=== PATIENT | male | born 2000 | race African-American/Black ===

== ENCOUNTER 2020-10-03 03:41 | Emergency (ER) | payer MEDICAID, SELFPAY ==
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
[2020-10-03 03:50] VITALS: BP 127/85; PULSE 97; RESP 18; O2SAT 97; BMI 20.4
[2020-10-03 03:54] LABS: MANUAL DIFF FLAG NO
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
[2020-10-03 03:56] LABS: Basophils Absolute Auto 0.1 X10*3/uL (0.0-0.2); Basophils Percent Auto 0.6 % (0-2); Eosinophils Absolute Auto 0.3 X10*3/uL (0.0-0.4); Eosinophils Percent Auto 3.9 % (0-4); Hematocrit 39.7 % (42-52); Hemoglobin 14.3 g/dl (14.0-18.0); Imm Gran Abs Auto 0.03 X10*3/uL (0.00-0.03); Imm Gran Pct Auto 0.4 % (0.0-0.4); Lymphocytes Absolute Auto 2.6 X10*3/uL (1.2-4.9); Lymphocytes Percent Auto 33.5 % (20-40); Mean Corpuscular Hemoglobin 31.5 pg (27.0-33.0); Mean Corpuscular Volume 87.4 fL (80-98); Mean Platelet Volume 10.2 fL (9.4-12.4); Monocytes Absolute Auto 0.7 X10*3/uL (0.1-1.2); Neutrophils Absolute Auto 4.2 X10*3/uL (2.0-8.3); Neutrophils Percent Auto 52.6 % (45-73); Platelet Count 200 X10*3/uL (160-400); Red Blood Count 4.54 X10*6/uL (4.60-5.80); White Blood Count 7.9 X10*3/uL (4.8-10.8)
[2020-10-03] MEDS: 0.9 % Sodium Chloride 1,000 ML 999 ML IVCONT ×4 (03:59→04:35)
[2020-10-03] MEDS: ondansetron HCL 4 MG/2 ML VIAL IVPUSH (04:00)
[2020-10-03 04:09] VITALS: BP 111/69; PULSE 66; RESP 18; TEMP 37; O2SAT 97
[2020-10-03 04:15] LABS: COVID-19 Test Negative (Negative); IDNOW Serial# 9DD0AD1C
[2020-10-03 04:18] LABS: Anion Gap 17 (12-20); Blood Urea Nitrogen 13 mg/dL (9-16); Calcium 9.6 mg/dL (8.4-10.2); Carbon Dioxide 20 mmol/L (22-29); Chloride 110 mmol/L (96-108); Estimated Glomerular Filt Rate > 60; Glucose Random 84 mg/dL (60-115); Potassium 3.7 mmol/L (3.3-5.1); Sodium 143 mmol/L (135-145)
--- NOTE | 2020-10-03 04:26 | PC.NURSE ---
CALL TO [facility]
--- NOTE | 2020-10-03 04:31 | PC.NURSE ---
REPORT GIVEN TO AGA JEREZ AT [facility] TRAUMA TEAM.
--- NOTE | 2020-10-03 04:34 | PC.NURSE ---
Called [facility] transfer line per at [phone],awaiting for call back. Called a second time to [facility] transfer line at [phone] still awaiting for a call back. Received a call back at [phone] patient is being transferred to [facility] ED,Accepting DR makenna Mclain.
[2020-10-03 04:44] VITALS: BP 116/74; PULSE 68; RESP 18; O2SAT 94
== END 2020-10-03 04:45 | disposition short-term general hospital (02) ==
PROVIDERS: Emergency Provider Emergency Medicine
DX: S31.119A Laceration without foreign body of abdominal wall, unspecified quadrant without penetration into peritoneal cavity, initial encounter (principal); S41.011A Laceration without foreign body of right shoulder, initial encounter; X99.1XXA Assault by knife, initial encounter; Z20.822 Contact with and (suspected) exposure to COVID-19; F17.210 Nicotine dependence, cigarettes, uncomplicated; F14.90 Cocaine use, unspecified, uncomplicated; F12.90 Cannabis use, unspecified, uncomplicated; Y93.9 Activity, unspecified; Y92.9 Unspecified place or not applicable; Y99.9 Unspecified external cause status
CPT/HCPCS: 36415; 71045; 80048; 85025; 87635; 96361; 96365; 96374; 99285; J0690; J2405

== ENCOUNTER 2021-07-13 10:39 | Emergency (ER) | payer MEDICAID, SELFPAY ==
[2021-07-13 11:09] VITALS: BP 123/72; PULSE 51; RESP 18; TEMP 36.9; O2SAT 99; BMI 21.5
[2021-07-13 11:17] LABS: Appearance Urine CLEAR; Color Urine YELLOW; Glucose Urine UA NEG (NEG); Leukocyte Esterase Urine NEG (NEG); Nitrite Urine NEG (NEG); Specific Gravity - Urine 1.025 (1.005-1.025); Urine Blood NEG (NEG); Urine Ketones NEG (NEG); Urine Protein NEG (NEG-TRACE)
--- NOTE | 2021-07-13 12:15 | ED.MALEGU ---
HPI - Male Genitourinary General Chief complaint: Urogenital-Male Stated complaint: STD testing Time Seen by Provider: 07/13/21 12:15 Source: patient Mode of arrival: ambulatory Limitations: no limitations History of Present Illness HPI Narrative: 20-year-old male previously healthy here with reports of penile discharge and dysuria. Girlfriend is positive for gonorrhea and chlamydia. No testicular pain, back pain, abdominal pain, fevers or chills Related Data Previous Rx's Medication Instructions Recorded doxycycline monohydrate 100 mg 100 mg PO BID #20 cap 07/13/21 capsule Allergies Allergy/AdvReac Type Severity Reaction Status Date / Time shellfish derived Allergy Intermediate Swelling Verified 07/13/21 11:08 [SHELLFISH DERIVED] to tongue Review of Systems Review of Systems: Yes all other systems are reviewed and are negative Constitutional: Constitutional: Reports no additional constitutional complaints, Denies body ache(s), Denies chills, Denies fever(s), Denies headache(s) and Denies weakness Eyes: Eyes: Reports no additional eye complaints and Denies change in vision ENT: Reports system reviewed and no additional complaints, except as documented, Denies dizziness, Denies headache(s), Denies nasal congestion, Denies nasal discharge and Denies neck pain Cardiovascular: Cardiovascular: Reports no additional cardiovascular complaints, Denies chest pain, Denies leg edema and Denies dyspnea Respiratory: Respiratory: Reports no additional respiratory complaints, Denies cough and Denies dyspnea Gastrointestinal: Gastrointestinal: Reports no additional gastrointestinal complaints, Denies abdominal pain, Denies diarrhea, Denies nausea and Denies vomiting Genitourinary: Genitourinary: Reports dysuria, Denies flank pain, Reports penile discharge, Denies testicular mass, Denies testicular pain and Denies urinary incontinence Musculoskeletal: Musculoskeletal: Reports no additional musculoskeletal complaints, Denies back pain, Denies arthralgias, Denies joint swelling, Denies neck pain, Denies numbness and Denies tingling Integumentary/Breasts: Skin/Breast: Reports system reviewed and no additional complaints, except as docu and Denies rash Neurologic: Reports system reviewed and no additional complaints, except as documented, Denies Abnormal speech present, Denies dizziness, Denies headache(s), Denies numbness, Denies tingling and Denies weakness [facility] Past Medical History Attestation statement: The following information was validated with the patient. Source: old records reviewed and nursing notes reviewed Medical History Asthma Social History Social History Alcohol intake: current Alcohol intake frequency: 3 or more drinks per day Patient Tobacco Use Status: Current everyday Tobacco user Substance Use Type: Crack/Cocaine and Marijuana Advance Directives: No Advance Directives Information Provided: No Physical Exam Vital Signs: Vital Signs: Last Vital Signs Temp 98.4 F 07/13/21 11:09 Pulse 51 07/13/21 11:09 Resp 18 07/13/21 11:09 BP 123/72 07/13/21 11:09 Pulse Ox 99 07/13/21 11:09 BMI result Body Mass Index 21.5 Const: General: cooperative, healthy appearing, comfortable and no acute distress Orientation/consciousness: patient oriented x3 Limitations: no limitations HEENT: Head: Yes normal to inspection Ears: hearing grossly normal bilaterally Eyes: General: appearance normal, both eyes and all related structures Pupils: Equal, round and reactive pupils present Neck: Neck: Yes normal visual inspection Chest: Chest palpation & inspection: normal inspection of the chest Resp: Effort & Inspection: normal respiratory effort : Other: deferred by patient Back/Spine/Pelvis: Thoracic/Lumbar Spine: thoracic and lumbar spine normal to inspection Skin: General skin exam: no rashes or lesions noted Neuro: General: patient oriented x3, moves all extremities, no focal motor deficits and normal sensation to monofilament Cranial nerves: Yes Equal, round and reactive pupils present Cognition (Neuro): normal cognition Speech: No Abnormal speech present Gait exam (Neuro): Normal gait present Extrem: General: Yes normal to inspection Course Course Course Narrative: 20-year-old male here with penile discharge and dysuria with known contact with his girlfriend who is positive for gonorrhea and chlamydia. Patient was treated with ceftriaxone 500 mg IM and I will send him home with a course of doxycycline. Reviewed worrisome signs and symptoms of when to return to the emergency department. Comfortable discharge home. MDM - Male Genitourinary Medical Records Attestation: I reviewed the patient's medical records. Lab Data Attestation: I reviewed the patient's lab results. Labs: Lab Results 07/13/21 Range/Units 11:10 Urine Color YELLOW Urine Appearance CLEAR Urine pH 6.0 (5.0-8.0) Ur Specific [place] 1.025 (1.005-1.025) Urine Protein NEG (NEG-TRACE) MG/DL Urine Glucose (UA) NEG (NEG) MG/DL Urine Ketones NEG (NEG) MG/DL Urine Blood NEG (NEG) Urine Nitrite NEG (NEG) Ur Leukocyte Esterase NEG (NEG) Discharge Plan Discharge Clinical Impression: Concern about STD in male without diagnosis Patient Disposition: Home, Self-Care Instructions: Sexually Transmitted Diseases (ED) Additional Instructions: We tested you for STDs. We will call you in 1-2 days if the results are positive. If you are positive you should retest after you complete your antibiotics at [facility]. No unprotected sex with a course of antibiotic Prescriptions: New doxycycline monohydrate 100 mg capsule 100 mg PO BID Qty: 20 0RF Referrals: Physician,None [Primary Care Provider] - 1 week
[2021-07-13] MEDS: cefTRIAXone sodium 500 MG, Lidocaine HCl 1 % MPF 1 ML IM (12:28)
[2021-07-13 13:52] LABS: CT PCR DETECTED (Not Detect.); NG PCR DETECTED (Not Detect.)
== END 2021-07-13 12:39 | disposition home or self-care (01) ==
LOC: HO.ED 12:19
PROVIDERS: Emergency Provider Emergency Medicine
DX: R30.0 Dysuria (principal); A54.9 Gonococcal infection, unspecified; A74.9 Chlamydial infection, unspecified; F17.200 Nicotine dependence, unspecified, uncomplicated
CPT/HCPCS: 81003; 87491; 87591; 96372; 99281; 99284; J0696

== ENCOUNTER 2022-06-05 13:00 | Emergency (ER) | payer MEDICAID, SELFPAY ==
[2022-06-05 13:40] VITALS: BP 112/70; PULSE 62; RESP 19; TEMP 36.6; O2SAT 100; BMI 23.5
--- NOTE | 2022-06-05 13:42 | ED_ITS ---
HPI - General Adult General Chief complaint: General Medical Stated complaint: swollen tonsils Time Seen by Provider: 06/05/22 13:42 Source: patient, RN notes reviewed and old records reviewed Mode of arrival: ambulatory Limitations: no limitations History of Present Illness HPI narrative: 21-year-old male presents for evaluation of a sore throat and swollen tonsils. Symptoms started 3 or 4 days ago. He reports subjective fevers the last 2 days. Patient states he tends to get strep throat around this time every year He is able to swallow but it is painful swallow. Related Data Previous Rx's Medication Instructions Recorded doxycycline monohydrate 100 mg 100 mg PO BID #20 caps 07/13/21 capsule doxycycline hyclate 100 mg tablet 100 mg PO BID 10 days #20 tabs 07/15/21 metronidazole 500 mg tablet 500 mg PO Q12H 10 days #20 tabs 07/15/21 ibuprofen 800 mg tablet 800 mg PO TID PRN pain #20 tabs 06/05/22 penicillin V potassium 500 mg 500 mg PO TID #21 tabs 06/05/22 tablet Allergies Allergy/AdvReac Type Severity Reaction Status Date / Time shellfish derived Allergy Intermediate Swelling Verified 07/13/21 11:08 [SHELLFISH DERIVED] to tongue Review of Systems Constitutional: Constitutional: Reports fever(s) and Denies headache(s) ENT: Denies headache(s) and Reports sore throat Respiratory: Respiratory: Denies cough Gastrointestinal: Gastrointestinal: Denies abdominal pain Neurologic: Denies headache(s) PMFSH Past Medical History Medical History Asthma Social History Social History Alcohol intake: current Alcohol intake frequency: 3 or more drinks per day Patient Tobacco Use Status: Current everyday Tobacco user Substance Use Type: Crack/Cocaine and Marijuana Physical Exam ED Const General: healthy appearing, comfortable, no acute distress, alert and awake Nutritional Appearance: well nourished Orientation/consciousness: patient oriented x3 HENMT Other: Bilateral tonsillar hypertrophy with exudates. Airway is widely patent Head: Yes normocephalic and Yes atraumatic Eyes Eyelids: Yes eyelids normal Conjunctivae: conjunctivae normal Sclerae: sclerae normal Corneas: corneas normal Pupils: Equal, round and reactive pupils present EOM: EOMs intact bilaterally Neck Neck: Yes full ROM Resp Effort & Inspection: normal respiratory effort, able to speak in complete sentences, no audible wheezes and not labored Auscultation: clear to auscultation bilaterally Cardio Rate: regular rate Rhythm: regular rhythm Skin General skin exam: no rashes or lesions noted and elasticity normal Neuro General: patient oriented x3 Cranial nerves: Yes Equal, round and reactive pupils present and Yes Bilaterally intact EOM present Cognition (Neuro): normal cognition Extrem Other: Moving all extremities well without any obvious deformities Medical Decision Making Medical Decision Making [facility] Narrative: Clinically the patient has strep throat and will treat as such. No evidence of peritonsillar abscess Differential Diagnosis Strep throat Peritonsillar abscess Viral syndrome Upper respiratory infection Discharge Plan Discharge Clinical Impression: Pharyngitis Patient Disposition: Home, Self-Care Instructions: Strep Throat (ED) Additional Instructions: Use penicillin 3 times daily for 7 days. Use ibuprofen as needed for pain and fevers. May also use salt water gargles Through your toothbrush out after your last dose of antibiotic Prescriptions: New penicillin V potassium 500 mg tablet 500 mg PO TID Qty: 21 0RF ibuprofen 800 mg tablet 800 mg PO TID PRN (Reason: pain) Qty: 20 0RF No Action doxycycline monohydrate 100 mg capsule 100 mg PO BID Qty: 20 0RF doxycycline hyclate 100 mg tablet 100 mg PO BID 10 Days Qty: 20 0RF metronidazole 500 mg tablet 500 mg PO Q12H 10 Days Qty: 20 0RF Stand Alone Forms: Work/School Release
== END 2022-06-05 13:51 | disposition home or self-care (01) ==
PROVIDERS: Emergency Provider Emergency Medicine Emergency Medical Services
DX: J02.9 Acute pharyngitis, unspecified (principal); F14.10 Cocaine abuse, uncomplicated; Z79.899 Other long term (current) drug therapy
CPT/HCPCS: 99282

== ENCOUNTER 2022-09-06 19:41 | Emergency (ER) | payer MEDICAID, SELFPAY ==
--- NOTE | ~2022-09-06 | US_ITS ---
EXAMINATION: US VENOUS WITH DOPPLER UPPER EXTREMITY, LEFT CLINICAL INFORMATION: Left upper extremity pain COMPARISON: None available. TECHNIQUE: Ultrasound of the upper extremity is performed using compression sonography and color and pulse Doppler flow with assessment of augmentation of flow. There is also imaging and Doppler assessment of the jugular and subclavian veins. Spectral analysis with color-flow imaging is performed. FINDINGS: Respiratory variation, normal compression, and augmented flow are noted throughout the left upper extremity including the axillary, brachial, cubital, and radial and ulnar veins. There is normal flow in the internal jugular and subclavian veins. There is no visible deep or superficial thrombophlebitis. If the patient's symptoms progress, a followup ultrasound in 5 -7 days might be of value to exclude proximal propagation from a nonvisualized distal arm vein. US/US venous duplex UE LT IMPRESSION: No DVT demonstrated in the left upper extremity.
[2022-09-06 20:04] VITALS: BP 117/56; PULSE 60; RESP 18; TEMP 36; O2SAT 99; BMI 23.5
--- NOTE | 2022-09-06 20:06 | ED.GENADULT ---
HPI - General Adult General Chief complaint: Extremity Injury, Upper Stated complaint: Left forearm pain Time Seen by Provider: 09/06/22 21:31 Source: patient, RN notes reviewed and old records reviewed Mode of arrival: ambulatory History of Present Illness HPI narrative: 21-year-old male with past medical history of asthma, substance abuse (denies IVDA), presenting to ED complaining of left arm pain, and intermittent tingling s/p lab draw on Monday at detox facility. States initially after dropped fell tingling/electric sensation down arm, now worse with movement and certain positions. Denies neck pain, direct injury/trauma or fall, weakness, fever/chills, swelling, SOB Onset (ago): day(s) Related Data Previous Rx's Medication Instructions Recorded doxycycline monohydrate 100 mg 100 mg PO BID #20 caps 07/13/21 capsule doxycycline hyclate 100 mg tablet 100 mg PO BID 10 days #20 tabs 07/15/21 metronidazole 500 mg tablet 500 mg PO Q12H 10 days #20 tabs 07/15/21 ibuprofen 800 mg tablet 800 mg PO TID PRN pain #20 tabs 06/05/22 penicillin V potassium 500 mg 500 mg PO TID #21 tabs 06/05/22 tablet Allergies Allergy/AdvReac Type Severity Reaction Status Date / Time shellfish derived Allergy Intermediate Swelling Verified 09/06/22 20:04 [SHELLFISH DERIVED] to tongue Review of Systems Review of Systems: Constitutional: No Fever, No Chills ENT/Mouth: No Ear Pain, No Nasal Congestion, No Sinus Pain, No Hoarseness, No sore throat, No Rhinorrhea, No Swallowing Difficulty Cardiovascular: No Chest Pain, No SOB Respiratory: No Cough, No Sputum, No Wheezing Gastrointestinal: No Nausea, No Vomiting, No Diarrhea, No Constipation, No Abdominal pain Musculoskeletal: + joint pain, No Myalgias, No Joint Swelling Skin: No Skin Lesions, No rash Neuro: No Weakness, No Numbness, + Paresthesias Yes all other systems are reviewed and are negative Constitutional: Constitutional: Reports as per [facility] Past Medical History Attestation statement: The following information was validated with the patient. Source: old records reviewed Medical History Asthma Social History Social History Alcohol intake: current Alcohol intake frequency: 3 or more drinks per day Patient Tobacco Use Status: Current everyday Tobacco user Substance Use Type: Crack/Cocaine and Marijuana Advance Directives: No Advance Directives Information Provided: No Physical Exam ED Vital Signs: Vital Signs - 24 hr 09/06/22 20:04 Temperature 96.8 F Pulse Rate 60 Respiratory Rate 18 Blood Pressure 117/56 L Pulse Oximetry 99 Oxygen Delivery Method Room Air BMI result Body Mass Index 23.5 Const General: cooperative, healthy appearing and no acute distress Orientation/consciousness: patient oriented x3 Limitations: no limitations HENMT Head: Yes normal to inspection and Yes atraumatic Ears: hearing grossly normal bilaterally General nose exam: Normal external nose present Face and sinus: Yes normal facial exam Eyes General: appearance normal, both eyes and all related structures EOM: EOMs intact bilaterally Neck Neck: Yes normal visual inspection and Yes no meningeal signs Resp Effort & Inspection: normal respiratory effort and no respiratory distress Cardio Rate: regular rate Heart sounds: S1 normal heart sound present and S2 normal heart sound present Peripheral pulses: Peripheral pulses 2+ throughout Back/Spine/Pelvis Other: No midline cervical/thoracic/lumbar spinous tenderness/step-off or deformity Skin Rashes: no rashes Wounds: no wounds Neuro General: patient oriented x3, tone normal and no meningeal signs Gait exam (Neuro): Normal gait present Extrem Other: Left upper extremity without noted deformity, no swelling/erythema or ecchymosis. No appreciable puncture wounds. No thrombophlebitis/streaking. FROM & NV intact General: Yes normal to inspection Course Course Course Narrative: RME- 21-year-old male presents for evaluation of left arm pain. He reports he checked himself in detox last weekend after having his blood drawn at the facility, he has had intermittent pains to his left forearm mostly. His pain is worse in certain positions. There was no trauma to the area. Plan for ultrasound to rule out DVT versus thrombophlebitis US venous duplex UE LT IMPRESSION: No DVT demonstrated in the left upper extremity. >Results discussed with patient including worrisome signs and symptoms and strict return precautions, and when to return to the emergency department. They verbalized understanding and feel safe for discharge at this time. Medical Decision Making Medical Decision Making MDM Narrative: 21-year-old male with past medical history of asthma, substance abuse (denies IVDA), presenting to ED complaining of left arm pain, and intermittent tingling s/p lab draw on Monday at detox facility. On exam vital signs stable, NAD, nontoxic appearing, physical exam as noted above. No midline spinous tenderness throughout. No appreciable deformities/ edema/warmth or puncture wound. Full range of motion and neurovascularly intact. Concern for superficial thrombophlebitis vs DVT vs nerve irritation/injury/radiculopathy. Low suspicion for compartment syndrome/cellulitis, arthritis/carpal tunnel Plan: Venous duplex ultrasound ordered in triage Please refer to course for remaining clinical decision making, interpretation of labs/imaging results, and discussions with consultants and/or family members. Differential Diagnosis Differential Diagnoses: The differential diagnosis associated with the presentation includes As above Admission/Observation Consideration of admission/observation: Escalation of care including admission/observation considered Radiology Impression Discussion of test interpretation with radiology: I have reviewed the radiologist's reading. External Record Review External record reviewed: Inpatient record, Office record, Outpatient record, Prior outpatient labs, Prior outpatient radiology, Primary care record and Outside ED record Tests considered The following testing was considered but not selected: As above Prescription Management I considered prescription management with: Pain Medication Social Determinants Patient?s care significantly limited by Social Determinants of Health including: Alcoholism and drug addiction in family and Problems related to primary support group Discharge Plan Discharge Clinical Impression: Superficial thrombophlebitis Patient Disposition: Home, Self-Care Instructions: Superficial Thrombophlebitis (ED) Additional Instructions: Your ultrasound was negative for a blood clot Apply warm compresses Take Tylenol /Motrin as needed Follow-up with her doctor Return to the ED symptoms persist or worsen or area begins to look infected Prescriptions: No Action doxycycline monohydrate 100 mg capsule 100 mg PO BID Qty: 20 0RF doxycycline hyclate 100 mg tablet 100 mg PO BID 10 Days Qty: 20 0RF metronidazole 500 mg tablet 500 mg PO Q12H 10 Days Qty: 20 0RF penicillin V potassium 500 mg tablet 500 mg PO TID Qty: 21 0RF ibuprofen 800 mg tablet 800 mg PO TID PRN (Reason: pain) Qty: 20 0RF Referrals: [facility] [Provider Group] [facility] [Provider Group] Physician,Unknown J [Primary Care Provider] - 3 days Interventions: ED Discharge Assessment Last Done: 09/06/22 22:49 Discharge Date/Time: 09/06/22 22:50
== END 2022-09-06 22:50 | disposition home or self-care (01) ==
PROVIDERS: Emergency Provider Internal Medicine
DX: I80.8 Phlebitis and thrombophlebitis of other sites (principal); M79.602 Pain in left arm; J45.909 Unspecified asthma, uncomplicated; F17.200 Nicotine dependence, unspecified, uncomplicated; F19.10 Other psychoactive substance abuse, uncomplicated; F12.90 Cannabis use, unspecified, uncomplicated
CPT/HCPCS: 93971; 99282; 99284